=== PATIENT | male | born 2000 ===

== ENCOUNTER 2021-06-02 08:57 | Emergency (ER) | payer SELFPAY ==
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
[2021-06-02 11:00] VITALS: BP 122/74
== END 2021-06-02 11:00 | disposition home or self-care (01) ==
LOC: ED 08:57
DX: Z04.3 Encounter for examination and observation following other accident (principal); V89.2XXA Person injured in unspecified motor-vehicle accident, traffic, initial encounter; Y93.89 Activity, other specified; Y92.89 Other specified places as the place of occurrence of the external cause; Y99.8 Other external cause status
CPT/HCPCS: 99282